=== PATIENT | male | born 1970 | race Caucasian/White ===

== ENCOUNTER 2017-10-13 15:35 | Emergency (ER) | payer OTHER ==
[~2017-10-13] VITALS: Ht 182.9 cm; Wt 79.8 kg
[~2017-10-13 15:35] MED LIST: ASPIRIN325 MG PO; BP PILL PO; ECOTRIN325 MG PO; FLEXERIL10 MG PO; LIPITOR10 MG PO; NAPROXEN500 MG PO; OXYCODONE-ACET1 EACH PO; PERCOCET 5/31 TABLET PO; ULTRAM50 MG PO; VISTARIL25 MG PO
[2017-10-13 19:34] VITALS: BP 179/105
== END 2017-10-13 19:35 | disposition home or self-care (01) ==
LOC: EME 15:35
DX: S60.551A Superficial foreign body of right hand, initial encounter (principal); W45.8XXA Other foreign body or object entering through skin, initial encounter; I10 Essential (primary) hypertension; F17.200 Nicotine dependence, unspecified, uncomplicated
CPT/HCPCS: 73130; 99281; 99283